=== PATIENT | female | born 1950 | race Caucasian/White ===

== ENCOUNTER 2020-07-01 11:14 | Day surgery (SDC) | payer MEDICARE, SELFPAY ==
[2020-07-01 11:43] VITALS: BMI 25.7
--- NOTE | 2020-07-01 11:43 | P.CONAN_ITS ---
[facility] Social History Social History Smoking Status: Never smoker Use of substances other than those prescribed or required for medical reasons: No Advance Directives: Yes Advance Directives Information Provided: No Advance Directives on File: No Advance Directives Date on File: 07/01/20 Recently lost weight without trying: Yes Meds Allergies Allergy/AdvReac Type Severity Reaction Status Date / Time No Known Allergies Allergy Verified 07/01/20 11:49 Exam Exam Date and Time: July 01, 2020 1143 Airway Mallampati Class: II TM Dist: >3cm Neck ROM: Full
[2020-07-01 11:48] VITALS: BP 143/64; PULSE 59; RESP 16; TEMP 36.3; O2SAT 99
--- NOTE | 2020-07-01 11:57 | MHC.SHP ---
Pre-Procedural Eval Section A The patient is an INPATIENT: No Changes since office visit: No Cold of Flu in the past 2 weeks, No New Medical Problems, No Changes in Medication and No Patient answered all questions The History & Physical has been completed within 30 days and I have reviewed it.: Yes Section B Chief Complaint: epigastric pain Allergies: Allergies Allergy/AdvReac Type Severity Reaction Status Date / Time No Known Allergies Allergy Verified 07/01/20 11:49 Plan I have reviewed the history and physical and performed a pertinent physical examination on my patient. No changes have occurred unless specified.
[2020-07-01] MEDS: Lactated Ringers 1,000 ML 100 ML IVCONT (12:04)
[2020-07-01 12:24] VITALS: BP 111/46; PULSE 54; RESP 16; TEMP 36.1; O2SAT 98
--- NOTE | 2020-07-01 12:28 | PM.OP ---
Brief Operative Note Date of Service: 07/01/20 Pre-op diagnosis: abd pain Post-op diagnosis: same (duodenitis, gastric polyps) Procedure: EGD Surgeon: Ravi Malone Anesthesia: MAC Estimated blood loss (mL): 5 Pathology: other (bxs antrum, egj, duodenum, gastric polyps) Condition: stable Disposition: PACU
[2020-07-01 12:39] VITALS: BP 136/70; PULSE 60; RESP 17; TEMP 36.1; O2SAT 99
--- NOTE | 2020-07-01 12:58 | OP_ITS ---
SURGEON: Ravi Malone MD INDICATIONS: Epigastric pain and vomiting. PREOPERATIVE DIAGNOSIS: POSTOPERATIVE DIAGNOSIS: PROCEDURE PERFORMED: Upper endoscopy with biopsy. ESTIMATED BLOOD LOSS: COMPLICATIONS: ANESTHESIA: Monitored anesthesia care. ASSISTANTS: SPECIMENS: DESCRIPTION OF PROCEDURE: History and physical performed. The risks and benefits of the procedure were explained to the patient. Informed consent was obtained. The patient was placed in the left lateral decubitus position. The Olympus video gastroscope was introduced into the esophagus, stomach, and duodenum. Examination was performed. The scope was removed. She tolerated the procedure well and was taken to recovery area in stable condition. FINDINGS: ESOPHAGUS: Esophagus was normal. Biopsies were obtained from the EG junction. STOMACH: The stomach showed several less than 5 mm gastric polyps with a benign appearance in the body and fundus, 2 of these were biopsied. Antral biopsies were obtained to rule out H pylori. Mucosa appeared normal without evidence of gastritis or ulcer. DUODENUM: The bulb and second portion were remarkable for duodenitis involving the bulb, but no duodenal ulcer was seen. Biopsies were obtained from the bulb and second portion. The second portion mucosa was normal. IMPRESSION: 1. Duodenitis. 2. Gastric polyps. RECOMMENDATION: Follow up the biopsy results. MD SULY Gibson/ANALISA / [id number] MTDD
--- NOTE | 2020-07-01 13:03 | HO.POSTANES ---
Post Anesthesia Evaluation Post Anesthesia Evaluation Vital Signs: Vital Signs Temp Pulse Resp BP Pulse Ox 07/01/20 12:39 97.0 F 60 17 136/70 99 07/01/20 12:24 97 F 54 16 111/46 L 98 07/01/20 11:48 97.4 F 59 16 143/64 H 99 Anesthesia: Monitored Mental Status: Awake Pain Control: Satisfactory Nausea/Vomiting: None Hydration: Adequate Anesthesia-Related Issues: No Anes. Related Issues
== END 2020-07-01 13:16 | disposition home or self-care (01) ==
PROVIDERS: PCP Nurse Practitioner Family; Visit Provider Internal Medicine Gastroenterology
PROC: 0DJ08ZZ Inspection of Upper Intestinal Tract, Via Natural or Artificial Opening Endoscopic (ICD-10-PCS; CPT 43235; principal; 2020-07-01 12:10)
DX: K29.80 Duodenitis without bleeding (principal); K31.7 Polyp of stomach and duodenum; K20.90 Esophagitis, unspecified without bleeding; K57.30 Diverticulosis of large intestine without perforation or abscess without bleeding; I10 Essential (primary) hypertension
CPT/HCPCS: 43239; 88305; 88342